=== PATIENT | female | born 1960 | race Hispanic/Latino ===

== ENCOUNTER 2018-05-05 23:51 | Inpatient (IN) | payer MEDICARE, MEDICAID ==
[2018-05-06] MEDS ORDERED: Fosphenytoin Sodium 1,500 MG in Sodium Chloride 0.9% 100 ML IVPB SCH (00:15)
[2018-05-06 00:37] LABS: PTT 23.6 SEC (22.9-36.1)
[2018-05-06 00:50] LABS: Alcohol Less than 10 mg/dL (Less than 10); Salicylate Less than 8.0 mg/dL (15.0-30.0)
[2018-05-06 00:52] LABS: ALT (SGPT) 11 U/L (8-55); AST (SGOT) 19 U/L (5-34); Albumin 3.7 g/dL (3.5-5.0); Alkaline Phosphatase 67 U/L (40-150); Anion Gap 13 mmol/L (10-20); BUN (Urea Nitrogen) 18 mg/dL (9.8-20.1); Bilirubin, Total 0.2 mg/dL (0.2-1.2); CK (CPK) 83 U/L (29-168); Calc. Creatinine Clearance 0 mL/min (70-130); Calcium 9.1 mg/dL (7.8-10.44); Carbon Dioxide 22 mmol/L (22-29); Chloride 108 mmol/L (98-107); Estimated GFR-MDRD 74; Globulin 3.2 g/dL (2.4-3.5); Glucose 112 mg/dL (70-105); Lipase 41 U/L (8-78); Potassium 3.7 mmol/L (3.5-5.1); Protein, Total 6.9 g/dL (6.0-8.3); Sodium 139 mmol/L (136-145)
[2018-05-06 00:55] LABS: CKMB 1.6 ng/mL (0-6.6); Troponin I Less than 0.010 ng/mL (< 0.028)
[2018-05-06 00:57] LABS: Bilirubin Negative (Negative); Blood, Urine Negative (Negative); Clarity CLEAR (Clear); Glucose, Urine (Dipstick) Negative (Negative); Leukocyte Large (Negative); Nitrite Negative (Negative); Protein, Urine (Dipstick) Negative (Neg-Trace); Specific Gravity, Urine 1.012 (1.002-1.036); Urobilinogen 0.2 mg/dL (0.2-1.0)
[2018-05-06 00:59] LABS: Eosinophils 3 % (0-10); Hemoglobin 11.2 g/dL (12.0-16.0); Lymphocytes 59 % (21-51); MDiff Complete? YES; Mean Corpuscular HGB CONC 31.7 g/dL (32.0-36.0); Mean Corpuscular Volume 88.4 fL (78.0-98.0); Monocytes 6 % (0-10); Neutrophil 31 % (42-75); PLT Morphology Comment Appears Decreased; Platelet Count 73 thou/uL (130-400); RBC Distribution Width 13.2 % (11.5-14.5); White Blood Cell (WBC) Count 5.5 thou/uL (4.8-10.8)
[2018-05-06 01:00] LABS: Bacteria/HPF None Seen HPF (None Seen); Hyaline Casts/LPF 0-3 HYALINE CAST LPF (0-3 Hyaline); Pathc Cast-AUWi Flag 0.29 (0-2.49); RBC/HPF 0-3 HPF (0-3)
[2018-05-06 01:04] LABS: Renal Epithelial None Seen HPF (0-3); Transitional Epithelial NONE SEEN HPF (0-3)
[2018-05-06 01:11] LABS: Amphetamine Not Detected (NotDetected); Barbiturates Screen Not Detected (NotDetected); Benzodiazepine Screen Not Detected (NotDetected); Cocaine Metabolite Screen Not Detected (NotDetected); Medtox Reader # READER 4; Methadone Not Detected (NotDetected); Methamphetamine Not Detected (NotDetected); Opiate Screen Not Detected (NotDetected); Oxycodone Screen Not Detected (NotDetected); Phencyclidine (PCP) Not Detected (NotDetected); THC/Cannabinoid Screen Not Detected (NotDetected); Tricyclic Screen Not Detected (NotDetected)
[2018-05-06 01:12] LABS: Medtox Control Line Valid? VALID (VALID)
[2018-05-06] MEDS ORDERED: Ondansetron HCl/PF 4 MG/2 ML Vial IVP PRN (02:11)
[2018-05-06] MEDS: Sodium Chloride 0.9% 1,000 ML IV SCH ×3 (02:45→21:17)
[2018-05-06 02:51] VITALS: BMI 30.2
[2018-05-06] MEDS ORDERED: Lorazepam 2 MG/ML VIAL SLOW IVP PRN (03:00)
[2018-05-06 05:23] LABS: Anion Gap 14 mmol/L (10-20); BUN (Urea Nitrogen) 15 mg/dL (9.8-20.1); Calc. Creatinine Clearance 86 mL/min (70-130); Calcium 9.1 mg/dL (7.8-10.44); Carbon Dioxide 19 mmol/L (22-29); Chloride 112 mmol/L (98-107); Estimated GFR-MDRD Greater than 90; Glucose 116 mg/dL (70-105); Potassium 4.2 mmol/L (3.5-5.1); Sodium 141 mmol/L (136-145)
[2018-05-06 05:55] LABS: Band 10 % (5-11); Hemoglobin 11.2 g/dL (12.0-16.0); Lymphocytes 23 % (21-51); MDiff Complete? YES; Mean Corpuscular HGB CONC 32.1 g/dL (32.0-36.0); Mean Corpuscular Hemoglobin 28.8 pg (27.0-31.0); Mean Corpuscular Volume 89.6 fL (78.0-98.0); Mean Platelet Volume 9.1 fL (7.4-10.4); Monocytes 4 % (0-10); Neutrophil 63 % (42-75); Platelet Count 210 thou/uL (130-400); RBC Distribution Width 13.1 % (11.5-14.5); Red Blood Cell (RBC) Count 3.89 mill/uL (4.20-5.40); White Blood Cell (WBC) Count 6.1 thou/uL (4.8-10.8)
--- NOTE | 2018-05-06 07:55 | HP ---
TIME OF EVALUATION: 2:05 a.m. PRIMARY CARE PHYSICIAN: Dr. Johnny Guadarrama. CODE STATUS: FULL CODE. CHIEF COMPLAINT: Seizure. HISTORY OF PRESENT ILLNESS: This is a 57-year-old female patient with past medical history of hydrocephalus, nonfunctioning HEAVY MACHINERY OPERATOR shunt, DVT, syncope, seizures in childhood, migraine headaches, came to the hospital after having an episode of twitching that lasted for about 20 minutes that was prior to arrival to EMS. As per report, the patient was given Ativan, seizure activity stopped. She was doing well in the ER, she had another episode of seizure, and was treated with a Dilantin loading dose. There are no clear triggers, no alleviating factors, Pt has been for so long without seizures that is why the patient was not following with a neurologist. By the time of my examination, the patient is in postictal state, but she has some confusion associated with Dilantin that has been given, information is gathered from the patient's sister who is at bedside. There have been no fevers reported. No chest pain or shortness of breath.symptoms were severe REVIEW OF SYSTEMS: Unable to fully obtain, all information gathered has been from the sister as mentioned in the HPI. PAST MEDICAL HISTORY: Mentioned in the HPI. PAST SURGICAL HISTORY: Cholecystectomy. PSYCHIATRIC HISTORY: No previous psychiatric history. FAMILY HISTORY: Reviewed and noncontributory to current presentation. SOCIAL HISTORY: The patient lives at home. KNOWN ALLERGIES: PENICILLIN. REPORTED MEDICATIONS: Prilosec. PHYSICAL EXAMINATION: VITAL SIGNS: On presentation, blood pressure 125/73 with heart rate 97, respiratory rate 22, temperature 97.8, oxygen saturation 96% on room air. GENERAL APPEARANCE: Patient is encephalopathic, disoriented, likely due to ____ _(03:11) medication. HEENT: Eyes: Normal conjunctivae. Moist oral mucosa, anicteric. NECK: No JVD. RESPIRATORY: Bilateral air entry. No rales, no wheezing. Symmetric expansion. CARDIOVASCULAR: Normal rate, regular rhythm. No murmurs, no gallop. EXTREMITIES: Left lower extremity edema appears normal for this patient. ABDOMEN: Soft, normal bowel sounds. MUSCULOSKELETAL: Baseline range of motion and strength. No tenderness. SKIN: Warm and intact. No pallor, no rash, no redness. Peripheral pulses are present. Capillary refill seems to be intact. NEUROLOGIC: Unable to fully explore. The patient is encephalopathic, likely due to medication, being postictal state. No evidence of any neuro weakness that is new. Patient does have a baseline weakness in the right side. PSYCHIATRIC: Unable to explore. LABORATORY AND DIAGNOSTIC DATA: Reviewed. The patient had sinus tachycardia at the rate of 105, AK 162, QRS 88, QT corrected 452. CT head was done, ( 04:26) reported no acute intracranial hemorrhage, no definitive acute infarct by CT, chronic possible congenital findings are discussed above (04:46) comparison with any available prior exams will be helpful. Labs were reviewed for this patient. The patient has a white count 5.5, hemoglobin 11.2, MCV 88, platelet count 73. We will have the previous records to compare. Coagulation 13, INR 1, PTT 23.6. Chemistry: Sodium 139, potassium 3.7, chloride 108, carbon dioxide 22, anion gap 13, BUN 18, creatinine 0.7, GFR 74, glucose 112, calcium 9.1, total bilirubin 0.2, AST 19, ALT 11, alkaline phosphatase 67, ammonia 45, creatinine 83, CK-MB 1.6. Troponin negative x1. Beta natriuretic peptide is normal. Prolactin 46.76. Urine was done and showed white count 7- 10. Toxicology was done and was negative. ASSESSMENT AND PLAN: The patient will be placed in the hospital with following medical problems: 1. Acute episode of seizure, continued to be present in the hospital, initial episode was a generalized tonic-clonic seizure, second one seems more like a simple partial seizure of the right upper extremity and right side of the face described by family. They have consulted Neuro, Dilantin loading dose has been given. We will follow neurology recommendations. We will place the patient on seizure precautions and Ativan p.r.n. for any active seizures. 2. Acute encephalopathy. The patient has confusion likely secondary to postictal state plus effect of Dilantin loading dose. We will monitor, as patient's precautions, seizure precautions, fall precautions. 3. Hyperglycemia of glucose 112. No history of diabetes, likely due to acute physical distress. We will monitor. No need for any acute intervention at this point. 4. Positive urine with white count 7-10, unable to find out. At this point, the patient does have asymptomatic bacteriuria. It looks like patient had no other signs of sepsis. We will send a urine culture. We will treat accordingly. 5. Deep venous thrombosis prophylaxis. We will keep the patient on sequential compression devices since patient is thrombocytopenic. 6. Severe thrombocytopenia with platelet count 73, we would not have any previous values to compare. We will monitor. We will adjust treatment as needed. There is no bleeding. This may need to be followed with me as outpatient. 7. History of HEAVY MACHINERY OPERATOR shunt. CT head did not show any signs of malfunction and as per radiology report. MTDD
--- NOTE | 2018-05-06 08:39 | RAD ---
PORTABLE AP CHEST X-RAY: 05/06/2018 HISTORY: Altered mental status. Seizure. COMPARISON: None available. FINDINGS: The cardiac silhouette and bronchovascular markings are accentuated by the shallow depth of inspirati on and the portable technique. No consolidation or pleural fluid is seen. Surgical clips overly the right upper quadrant. There is a linear metallic density overlying the right upper extremity, which does overly the proximal aspect of the humerus. Osseous structures are otherwise intact. IMPRESSION: No acute cardiopulmonary process. POS: [facility]
[2018-05-06] MEDS ORDERED: Enoxaparin Sodium 40 MG/0.4 ML SYRINGE SC SCH (09:00)
--- NOTE | 2018-05-06 10:22 | PDOC.EVN ---
Event Note - Event Note Event Note: Reviewed records, examined patient. She is coming around and talking now. Boyfriend and sister are at bedside. She has not had any recent illness, fever , headache or change in situation. Has had the PIGMENT SUPPLIER shunt since 18 months of age. Had initial sz and had ativan en route in the ambulance. Seizure stopped. She then had second in the ED when IV insertion attempted. Had IO and loaded with Dilantin. Neuro consult pending.
--- NOTE | 2018-05-06 11:51 | CT ---
PRELIMINARY REPORT/[facility]/EMERGENCY AFTER HOURS PROCEDURE: EXAM: CT Head Without Intravenous Contrast CLINICAL HISTORY: 56 years old, female; Signs and symptoms; Other: Seizure; Patient HX: Seizure lasting approx. 20mins, no HX seizures TECHNIQUE: Axial computed tomography images of the head/brain without intravenous contrast. COMPARISON: No relevant prior studies available. FINDINGS: No definite acute skull fracture. 2 small retention cysts or polyps in the right maxillary sinus. Included paranasal sinuses otherwise appear essentially clear. No acute intracranial hemorrhage. Ventricle size is normal for age. No definite acute infarct by CT. MRI could be more sensitive/specific for detection, as clinically di rected. Large area of apparent encephalomalacia involving the inferior right temporal and frontal regions. An arachnoid cyst is felt less likely, since blood vessels appear to cross through this region. Prominent atrophy/encephalomalacia involve significant portions of the left cerebral hemisphere. Areas of apparent chronic dural thickening/calcification bilaterally, greater on the left. IMPRESSION: No acute intracranial hemorrhage. No definite acute infarct by CT, see above. Chronic/possible congenital findings as discussed above. Eventual comparison with any available prior exams will be helpful. Thank you for allowing us to participate in the care of your patient. Dictated and Authenticated by: Gen Orozco MD 05/06/2018 1:15 AM Central Time ([place] & [place]) FINAL REPORT HEAD CT WITHOUT CONTRAST: HISTORY: Seizure. Altered mental status. FINDINGS: This report is in agreement with the preliminary report by [facility]. There are chronic processes as descr ibed in the preliminary report by [facility]. There is encephalomalacia involving the left and right cerebr um with increased CSF density likely due to malacic change. Calcification of the left and right dura is noted. POS: [facility]
[2018-05-06] MEDS ORDERED: diphenhydrAMINE 50 MG/ML VIAL IVP SCH (20:30)
--- NOTE | 2018-05-06 22:09 | CON ---
DATE OF CONSULTATION: 05/06/2018 NEUROLOGY CONSULTATION CONSULTING PHYSICIAN: Hospitalist service. IMPRESSION: 1. Simple partial seizures. 2. Infrequent headaches. 3. 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 PLAN: 1. No anticonvulsants at this time. 2. Patient can be discharged home and I will follow up with her as an outpatient. HISTORY OF PRESENT ILLNESS: Ms. Carmona is a 57-year-old female with a history of cerebral p alsy. She had some seizures as a child and was treated briefly during that interval of time. She guzman d a shunt at one point in time as well. This was discontinued later on. She had recurrent headaches and was treated with Topamax and a beta-joan at one point by her primary physician, but she did n ot tolerate them very well. She had a witnessed facial twitching on the right side with speech arres t. She reports that she was aware throughout the whole event. There was no associated headache, forest sea, vomiting, vertigo, or lateralized numbness or weakness. Normally, she gets around independently . She volunteers a [employer]. She lives independently in her own home. PAST MEDICAL HISTORY: Cerebral palsy. ALLERGIES: PENICILLIN. SOCIAL HISTORY: No tobacco or alcohol use. FAMILY HISTORY: Noncontributory. REVIEW OF SYSTEMS: No complaints at this point in time. PHYSICAL EXAMINATION: GENERAL: She is a petite, middle-aged woman in no distress. VITAL SIGNS: Stable. She is afebrile. HEENT: Pupils equal and reactive. Conjunctivae clear. Oropharynx clear. NECK: Supple. EXTREMITIES: No cyanosis. NEUROLOGIC: She is alert and cooperative. Her speech is fluent and clear. Cranial nerve exam showe d flattening of the right nasal labial fold. Motor exam showed some spastic weakness with atrophy of the right arm and leg. Sensation is intact to light touch. No abnormal movements were seen. EKG s howed a sinus rhythm. CT scan of the brain shows bifrontal encephalomalacia. SUMMARY: A middle-aged woman with a brief focal seizure. The first one in many many years, I do not see a need for anticonvulsants, her Cerebyx made her quite sleepy, but she seems to have returned to her baseline. I would be happy to follow up with her as an outpatient.
[2018-05-07] MEDS: Acetaminophen 325 MG TAB PO PRN ×2 (08:47→17:11)
[2018-05-07] MEDS: Sodium Chloride 0.9% 1,000 ML IV SCH (21:00)
[2018-05-08] MEDS: Acetaminophen 325 MG TAB PO PRN ×2 (08:37→12:36)
--- NOTE | 2018-05-08 14:57 | RAD ---
PORTABLE KUB: DATE: 05/08/18. COMPARISON: None. HISTORY: Pain. FINDINGS: Supine imaging limits assessment for free air and small bowel obstruction. Vascular stent material o verlies the L5 vertebral body and sacrum on the left. Clips in the right upper quadrant suggest prior cholecystectomy. The bowel gas pattern appears nonob structed. IMPRESSION: Nonobstructed bowel gas pattern. POS: [facility]
[2018-05-08 15:55] VITALS: BP 97/56; TEMP 97.7
--- NOTE | 2018-05-08 16:03 | PDOC.PN ---
- Subjective Encounter Start Date: 05/07/18 Encounter Start Time: 10:00 Still a little lightheaded when she walks. Still having episodes drowsiness and loss of focus when having conversation. - Objective Resuscitation Status: Resuscitation Status FULL:Full Resuscitation Vital Signs & Weight: Vital Signs (12 hours) Temp Pulse Resp BP Pulse Ox 05/08/18 15:54 97.7 F 71 16 97/56 L 98 05/08/18 11:39 97.5 F L 77 16 124/76 98 05/08/18 08:38 97 05/08/18 08:00 97.7 F 65 16 109/70 97 Weight Admit Weight 130 lb 1.6 oz Weight 130 lb 1.6 oz I&O: 05/07/18 05/08/18 05/09/18 06:59 06:59 06:59 Intake Total 1100 1050 Balance 1100 1050 Result Diagrams: 05/06/18 04:03 05/06/18 04:03 Phys Exam - Physical Examination Constitutional: NAD Respiratory: no wheezing, no rales, no rhonchi, clear to auscultation bilateral Cardiovascular: RRR, no significant murmur, no rub Gastrointestinal: soft, non-tender, no distention, positive bowel sounds Musculoskeletal: no edema Does have some dozing in the midst of conversation. Psychiatric: normal affect Dx/Plan (1) Seizure Code(s): R56.9 - UNSPECIFIED CONVULSIONS Status: Acute Comment: Has not tolerated the Cerebryx well. Has not tolerated meds well at all over the years. Neuro does not plan on continuing any long-term meds. (2) History of hydrocephalus as a child Code(s): Z86.69 - PERSONAL HISTORY OF DIS OF THE NERVOUS SYS AND SENSE ORGANS Status: Acute (3) Post-ictal state Code(s): R56.9 - UNSPECIFIED CONVULSIONS Status: Acute Comment: Unclear if her current symptoms are post-ictal or persistent reaction to the cerebryx. Give her some more time to resolve this. - Plan * Above.
--- NOTE | 2018-05-08 16:09 | PDOC.PN ---
- Subjective Encounter Start Date: 05/08/18 Encounter Start Time: 16:05 Patient seen several times today. Had an episode last night in which she was having a "nightmare". She indicates that she had severe exacerbation of long-standing abdominal pain. Couldn't talk for a minute or two. This morning she had a headache. Has a history of migraines. Has been getting up and around well today. - Objective Resuscitation Status: Resuscitation Status FULL:Full Resuscitation Vital Signs & Weight: Vital Signs (12 hours) Temp Pulse Resp BP Pulse Ox 05/08/18 15:54 97.7 F 71 16 97/56 L 98 05/08/18 11:39 97.5 F L 77 16 124/76 98 05/08/18 08:38 97 05/08/18 08:00 97.7 F 65 16 109/70 97 Weight Admit Weight 130 lb 1.6 oz Weight 130 lb 1.6 oz I&O: 05/07/18 05/08/18 05/09/18 06:59 06:59 06:59 Intake Total 1100 1050 Balance 1100 1050 Result Diagrams: 05/06/18 04:03 05/06/18 04:03 Phys Exam - Physical Examination Constitutional: NAD Respiratory: no wheezing, no rales, no rhonchi, clear to auscultation bilateral Cardiovascular: RRR, no significant murmur, no rub Gastrointestinal: soft, no distention, positive bowel sounds mild TTP in the lower abdomen. Musculoskeletal: no edema Psychiatric: normal affect Dx/Plan (1) Seizure Code(s): R56.9 - UNSPECIFIED CONVULSIONS Status: Acute Comment: Has not tolerated the Cerebryx well. Has not tolerated meds well at all over the years. Neuro does not plan on continuing any long-term meds. (2) History of hydrocephalus as a child Code(s): Z86.69 - PERSONAL HISTORY OF DIS OF THE NERVOUS SYS AND SENSE ORGANS Status: Acute (3) Post-ictal state Code(s): R56.9 - UNSPECIFIED CONVULSIONS Status: Acute Comment: Symptoms much improved. (4) Abdominal pain Code(s): R10.9 - UNSPECIFIED ABDOMINAL PAIN Status: Acute Qualifiers: Abdominal location: lower abdomen, unspecified Qualified Code(s): R10.30 - Lower abdominal pain, unspecified Comment: Obtained a KUB and there is a vascular stent present in the area of her discomfort. Discussed with her. She did have a blood clot in the left leg many years ago. It was around the area of the popliteal fossa. Thinks she had a stent then, but thought it was down in the leg. The position of the stent is odd. It looks too far right and horizontal. Discussed with Radiologist. He agrees it is a bit odd. Will obtain CT to confirm that it remains intravascular and has not migrated. - Plan * above.
--- NOTE | 2018-05-08 18:11 | CT ---
CT OF ABDOMEN AND PELVIS PERFORMED WITHOUT CONTRAST ENHANCEMENT: 05/08/18 HISTORY: Abdominal pain. Patient has a history of some type of stent placement. She is uncertain of what type. COMPARISON: A plain film examination done earlier today. The lung bases are clear. Small hypodensity within the liver is most likely a cyst. Spleen is within normal limits of size. Decker creas region is unremarkable. Gallbladder has been removed. Very small hiatal hernia is seen. Right and left adrenal glands are normal in appearance. Subtle hyperdensity is seen in the upper pole of the right kidney, possibly a tiny cyst. Difficult to characterize but possibly a tiny hemorrhagic cyst. Not felt to be of significance. No obstruction or renal calculi. No significant periaortic or mesenteric adenopathy. CT OF PELVIS PERFORMED WITHOUT CONTRAST ENHANCEMENT: The appendix is normal. There is a stent present. The stent is within the left common iliac vein. The re is no evidence of adenopathy, mass or free fluid. IMPRESSION: No acute abnormalities of the abdomen or pelvis. Incidental findings as noted above. POS: [facility]
--- NOTE | 2018-05-09 13:28 | DIS ---
DATE OF ADMISSION: 05/06/2018 DATE OF DISCHARGE: 05/08/2018 DISCHARGE DIAGNOSES: 1. Seizure. 2. History of hydrocephalus. 3. Adverse reaction to Cerebyx. 4. Abdominal pain. HISTORY: This patient is a 57-year-old female with a history of hydrocephalus as a child. The patient had a BAG REPAIRER shunt placed at 18 months, but it was ultimately nonfunctioning. She had history of seizures, but had not had seizure in many years. She had not tolerated antiepileptic medications in the past and therefore was on no medications. She was highly functional and in good health until she had a spontaneous seizure episode. The patient was witnessed to have some limited tonic-clonic activity. In the emergency room, the patient had another episode. She had initially received Ativan and it terminated her original seizure, but her second required loading of Cerebyx in the emergency department. HOSPITAL COURSE: The patient was admitted to the hospital for observation after her seizure as she had 2 seizures and it had been many years since she had 1. She remained somewhat altered for the next 36-48 hour timeframe. The patient was able to come fully awake and conversant, but was very drowsy and having difficulty focusing even in the midst of conversation. It was unclear if this was a postictal phase or if this was still related to the adverse effect from the Cerebyx similar to what she had experienced in the past with antiepileptic medications. The patient was seen in consultation by Neurology who felt the patient was stable for discharge to home. However, given her persistent intermittent symptoms, the patient remained an additional day. During that time, the patient had some mild headache and she also had some abdominal pain which was exacerbation of chronic problem for her. A KUB was obtained, which revealed a device in the abdomen which appeared to be an intravascular stent; however, the positioning appeared to be somewhat off. I have discussed with Radiology and ultimately a CT scan was obtained and it did appear that the stent was in the right common iliac vein and there was just a slight angulation in her vein anatomy. Given that this appeared to be appropriate and benign, there were no other findings to explain her chronic abdominal pain and the fact that the patient was ambulating well, eating well and her neurologic status was at baseline, she was felt to be stable for discharge to home. PHYSICAL EXAMINATION: Please see the progress note dated earlier from the same date of discharge. DISPOSITION: The patient is discharged to home and her activity level is as tolerated and she has no diet restrictions. She will be on vitamin D3, Excedrin Migraine p.r.n., omeprazole daily. DISCHARGE FOLLOWUP: She is to follow up with Lieghton Turner D.O., her PCP and she should return to the emergency department should she have any problems prior to that time. CHRISTELLE
== END 2018-05-08 20:01 | disposition home or self-care (01) | DRG 100 ==
LOC: EDBD 23:51 → ERS 23:51 → IMCU/EMU 05-06 01:25 → 2SE 05-06 18:10
PROVIDERS: ADMIT Hospitalist; ATTEND Hospitalist
DX: R56.9 Unspecified convulsions (principal); G92 Toxic encephalopathy; Z86.718 Personal history of other venous thrombosis and embolism; Z79.899 Other long term (current) drug therapy; Z88.0 Allergy status to penicillin; T42.0X5A Adverse effect of hydantoin derivatives, initial encounter; R73.9 Hyperglycemia, unspecified; D69.6 Thrombocytopenia, unspecified; G80.9 Cerebral palsy, unspecified; Z98.2 Presence of cerebrospinal fluid drainage device; R53.1 Weakness; R10.30 Lower abdominal pain, unspecified
CPT/HCPCS: 36415; 36416; 70450; 71045; 74018; 74176; 80053; 80306; 80307; 81003; 81015; 82140; 82553; 83690; 83880; 84146; 84443; 84484; 85025; 85610; 85730; 87040; 87086; 93005; 96361; 96365; J1200; J2060; J2405; J7050; Q2009